=== PATIENT | male | born 1970 | race Caucasian/White ===

== ENCOUNTER 2020-03-28 13:46 | Emergency (ER) | payer MEDICAID ==
[~2020-03-28] VITALS: Ht 170.2 cm; Wt 83.0 kg
[2020-03-28 14:06] VITALS: BP 136/85; Ht 170.2 cm; Wt 83.0 kg
== END 2020-03-28 15:38 | disposition home or self-care (01) ==
LOC: ED 13:46
DX: S61.233A Puncture wound without foreign body of left middle finger without damage to nail, initial encounter (principal); W45.8XXA Other foreign body or object entering through skin, initial encounter; Y93.89 Activity, other specified; Y92.89 Other specified places as the place of occurrence of the external cause; Y99.8 Other external cause status
CPT/HCPCS: 90715